=== PATIENT | male | born 1975 | race Caucasian/White ===

== ENCOUNTER → 2020-09-13 10:45 | Outpatient (CLI) | payer OTHER, MEDICAID, SELFPAY ==
[2020-09-13 23:12] LABS: COVID19 - ORCAS (NP or Nasal) Negative (Negative)
== END ==
PROVIDERS: Family Medicine; PCP Physician Assistant; Visit Provider Physician Assistant
DX: R35.0 Frequency of micturition (principal); R50.9 Fever, unspecified
CPT/HCPCS: 87086; U0003

== ENCOUNTER → 2020-09-14 08:21 | Outpatient (CLI) | payer OTHER, SELFPAY ==
[2020-09-14 19:15] LABS: Alanine Aminotransferase 99 IU/L (<50); Albumin Globulin Ratio 1.5 (1.0-2.8); Alkaline Phosphatase 95 U/L (38-126); Aspartate Aminotransferase 88 IU/L (17-59); Bilirubin Total 1.1 mg/dL (0.2-1.3); Blood Urea Nitrogen 15 mg/dL (9-20); Calcium 9.4 mg/dL (8.4-10.2); Carbon Dioxide 27 mmol/L (22-32); Chloride 104 mmol/L (98-107); Estimated Glomerular Filt Rate > 60.0 mL/min (>60); Globulin 2.6 g/dL (1.7-4.1); Glucose 134 mg/dL (70-100); HEMOLYSIS 19 (0-50); Sodium 140 mmol/L (137-145); Total Protein 6.6 g/dL (6.3-8.2)
[2020-09-14 19:16] LABS: Add Manual Diff / Slide Review NO; Basophils Absolute Auto 0 /uL (0-100); Basophils Percent Auto 0.9 % (0-2); Eosinophils Absolute Auto 200 /uL (0-450); Eosinophils Percent Auto 4.1 % (2-4); Hematocrit 45.5 % (41-53); Hemoglobin 15.2 g/dL (13.5-17.5); Lymphocytes Absolute Auto 1000 /uL (1100-4500); Lymphocytes Percent Auto 25.4 % (25-40); Mean Corpuscular HGB Conc 33.3 % (30-36); Mean Corpuscular Hemoglobin 29.1 PG (26-34); Mean Corpuscular Volume 87.6 fL (80-100); Monocytes Absolute Auto 400 /uL (0-900); Monocytes Percent Auto 10.6 % (3-14); Neutrophils Absolute Auto 2200 /uL (1500-7000); Platelet Count 173 X10^3/uL (150-400); White Blood Cell Count 3.8 X10^3/uL (4.5-11.0)
== END ==
PROVIDERS: PCP Physician Assistant; Visit Provider Physician Assistant
DX: R35.0 Frequency of micturition (principal); R50.9 Fever, unspecified
CPT/HCPCS: 80053; 85025

== ENCOUNTER → 2020-10-01 15:27 | Outpatient (CLI) | payer OTHER, MEDICAID, SELFPAY ==
--- NOTE | 2020-10-01 15:28 | DI.CT.S_ITS ---
PROCEDURE: CT ABDOMEN PELVIS W CON INDICATIONS: abdominal pain TECHNIQUE: After the administration of intravenous contrast, 5 mm thick sections acquired from the diaphragm to the symphysis. 5 mm coronal and sagittal reformats were acquired. For radiation dose reduction, the following was used: automated exposure control, adjustment of mA and/or kV according to patient size. COMPARISON: None. FINDINGS: Image quality: Excellent. ABDOMEN: Lung bases: Lung bases are clear. Heart size is normal. Solid organs: Liver is normal in size and enhancement. Gallbladder appears normal, partially contracted. Biliary system is non dilated. Pancreas enhances normally. Spleen is normal in size but abnormal in enhancement, with internal rounded and ovoid masses, the largest of which measures up to 3.5 cm at the superior splenic hilum.. No adrenal nodules. Kidneys demonstrate normal size and enhancement, without hydronephrosis. Peritoneum and bowel: Bowel loops demonstrate normal wall thickness and caliber. No free fluid or air. Nodes and vessels: No retroperitoneal or mesenteric adenopathy by size criteria. Aorta and inferior vena cava are normal in size. Miscellaneous: No ventral hernias. PELVIS: Genitourinary: Bladder wall thickness is normal. Miscellaneous: No inguinal hernias or adenopathy. Bones: No suspicious bony lesions. No vertebral body compression fractures. IMPRESSION: Splenic lesions are present, rounded and ovoid, measuring up to 3.5 cm in diameter. Etiology is uncertain, and this is not associated with hepatic abnormalities or adenopathy. Multifocal lymphoma can produce such an appearance, unusual manifestation of splenic metastatic disease also should be considered. Nuclear medicine PET-CT scanning may be warranted. Also, oncologic consultation. Dictated by: Ham Miller M.D. on 10/01/2020 at 16:44 Approved by: Ham Miller M.D. on 10/01/2020 at 16:48
== END ==
PROVIDERS: PCP Physician Assistant; Referring Provider Physician Assistant; Visit Provider Physician Assistant
DX: R10.9 Unspecified abdominal pain (principal); D73.89 Other diseases of spleen; R74.8 Abnormal levels of other serum enzymes
CPT/HCPCS: 74177

== ENCOUNTER → 2020-10-06 08:43 | Outpatient (CLI) | payer OTHER, MEDICAID, SELFPAY ==
[2020-10-06 19:34] LABS: Add Manual Diff / Slide Review NO; Basophils Absolute Auto 0 /uL (0-100); Basophils Percent Auto 0.7 % (0-2); Eosinophils Absolute Auto 200 /uL (0-450); Eosinophils Percent Auto 3.3 % (2-4); Hemoglobin 14.5 g/dL (13.5-17.5); Lymphocytes Absolute Auto 1600 /uL (1100-4500); Lymphocytes Percent Auto 26.4 % (25-40); Mean Corpuscular Hemoglobin 29.1 PG (26-34); Mean Corpuscular Volume 88.3 fL (80-100); Monocytes Absolute Auto 400 /uL (0-900); Monocytes Percent Auto 6.5 % (3-14); Neutrophils Absolute Auto 3800 /uL (1500-7000); Neutrophils Percent Auto 63.1 % (50-75); Platelet Count 251 X10^3/uL (150-400); Red Blood Cell Count 4.99 X10^6/uL (4.5-5.9); Red Cell Distribution Width 13.8 % (11.6-14.8)
[2020-10-06 19:49] LABS: Appearance Urine UA CLEAR; Bilirubin Urine UA NEGATIVE (NEGATIVE); Color Urine UA YELLOW; Glucose Urine UA NEGATIVE (Negative); Ketones Urine UA NEGATIVE (NEGATIVE); Leukocyte Esterase Urine UA NEGATIVE (NEGATIVE); Nitrite Urine UA NEGATIVE (Negative); Occult Blood Urine UA NEGATIVE (Negative); Protein Urine UA NEGATIVE (Negative); Specific Gravity Urine UA 1.025 (1.000-1.035); Urobilinogen Urine UA 0.2 E.U./dL (0.2); pH Urine UA 5.5 (4.5-8.0)
[2020-10-06 19:56] LABS: Alanine Aminotransferase 24 IU/L (<50); Albumin 4.1 g/dL (3.5-5.0); Albumin Globulin Ratio 1.6 (1.0-2.8); Alkaline Phosphatase 74 U/L (38-126); Amylase 40 U/L (30-110); Aspartate Aminotransferase 28 IU/L (17-59); BUN Creatinine Ratio 18.9 (6-22); Bilirubin Total 1.4 mg/dL (0.2-1.3); Blood Urea Nitrogen 18 mg/dL (9-20); Calcium 9.8 mg/dL (8.4-10.2); Carbon Dioxide 28 mmol/L (22-32); Chloride 104 mmol/L (98-107); Cholesterol 161 mg/dL (140-199); Estimated Glomerular Filt Rate > 60.0 mL/min (>60); Globulin 2.6 g/dL (1.7-4.1); Glucose 108 mg/dL (70-100); HDL Cholesterol 80 mg/dL (40-60); HEMOLYSIS < 15 (0-50); LDL Cholesterol Calculated 73 mg/dL (<100); Lipase 134 U/L (23-300); Potassium 4.7 mmol/L (3.4-5.1); Sodium 139 mmol/L (137-145); Total Protein 6.7 g/dL (6.3-8.2); Triglycerides 38 mg/dL (35-150)
--- NOTE | 2020-10-11 11:31 | ONC.MSW ---
Description: New Referral Navigation T/C Reason for Referral: New Splenic Masses Activity: Reviewed referral and EMR clinicals. Called pt's to discuss the referral, medical status, acuity, and immediate needs. Pt has been experiencing increasing fatigue, malaise, and right flank pain. CT imaging showed new splenic lesions, however no further work-up has been done at this time. Pt's shares that they have a small child and a baby (11-months old), they live on [place], both pt/ express feeling highly anxious. Discussed what to expect with the first Oncology consult, as well as the ongoing availability of assistance, support, and resource referrals as needed. Confirmed a first consult visit time for Sunday, 10/18, at 3:20pm, 3:00 check-in time. Also provided my direct contact info should pt/family have any further questions or need for assistance prior to their visit. No further needs indicated at this time.
== END ==
PROVIDERS: PCP Physician Assistant; Visit Provider Physician Assistant
DX: R10.9 Unspecified abdominal pain (principal); R53.81 Other malaise; R53.83 Other fatigue; R74.8 Abnormal levels of other serum enzymes
CPT/HCPCS: 80053; 80061; 81003; 82150; 83690; 85025

== ENCOUNTER → 2020-10-13 12:21 | Outpatient (CLI) | payer OTHER, MEDICAID, SELFPAY ==
--- NOTE | 2020-10-13 12:22 | DI.CT.S_ITS ---
PROCEDURE: CT CHEST ABDOMEN W CON INDICATIONS: Splenic lesions, left axillary lymphadenopathy on exam TECHNIQUE: After the administration of oral contrast and intravenous contrast, 5 mm thick sections acquired from the lung apices to the iliac crests. 5 mm coronal and sagittal reformats were performed, with additional 7 mm coronal MIP reformats through the lungs. For radiation dose reduction, the following was used: automated exposure control, adjustment of mA and/or kV according to patient size. COMPARISON: [facility], CT, CT ABDOMEN PELVIS W CON, 10/01/2020, 16:21. FINDINGS: Image quality: Excellent. CHEST: Lungs and pleura: No acute air space opacities. No pleural effusions or pneumothorax. Central and peripheral airways are patent and normal in caliber. Mediastinum: Heart size is normal. No pericardial effusion. No mediastinal or hilar adenopathy by size criteria. Thoracic aorta and central pulmonary arteries are normal in size. Esophagus is normal in caliber. No hiatal hernia. Chest wall: No axillary or supraclavicular adenopathy by size criteria. Thyroid gland appears normal where well seen . ABDOMEN: Solid organs: Liver is normal in size and enhancement. Gallbladder appears normal . Biliary system is non dilated. Pancreas enhances normally. Spleen is normal in size and unchanged in enhancement. As was previously the case 10/01/20 the spleen is again seen to contain hypo dense nodules which are solid in appearance, the largest of which measures 3.5 cm at the superior splenic hilum. No change in size or morphology of these lesions is seen. No adrenal nodules. Kidneys are normal in size and enhancement, without hydronephrosis. Peritoneum and bowel: Bowel loops demonstrate normal wall thickness and caliber. No free fluid or air. Nodes and vessels: No retroperitoneal or mesenteric adenopathy by size criteria. Aorta and inferior vena cava are normal in caliber. Bones: No suspicious bony lesions. No vertebral body compression fractures. Miscellaneous: No ventral hernias. IMPRESSION: The splenic abnormalities present are discrete solid masses, and could be further characterized to some degree with ultrasound imaging. The findings were discussed with the ordering healthcare provider, medical natural resources specialist. Discussed was the potential benefit of obtaining a nuclear medicine PET-CT scan for this patient on the assumption that the splenic lesions are malignant in origin and possibly metastatic. The performance of a splenic biopsy, which has significant risk of bleeding, may be deferred by identification of a site of potential biopsy elsewhere that is safer for access. No additional lesion elsewhere, however, is seen by this CT scanning. Dictated by: Ham Miller M.D. on 10/13/2020 at 15:58 Approved by: Ham Miller M.D. on 10/13/2020 at 16:03
[2020-10-13 12:45] LABS: Hematocrit 43.9 % (41-53); Mean Corpuscular HGB Conc 34.1 % (30-36); Mean Corpuscular Hemoglobin 29.5 PG (26-34); Mean Corpuscular Volume 86.4 fL (80-100); Platelet Count 239 X10^3/uL (150-400); Red Blood Cell Count 5.08 X10^6/uL (4.5-5.9); Red Cell Distribution Width 13.6 % (11.6-14.8); Reticulocyte Count, Percent 0.9 % (0.87-2.60); White Blood Cell Count 7.6 X10^3/uL (4.5-11.0)
[2020-10-13 13:11] LABS: Neutrophils Absolute Manual 5168 /uL (3000-5900); Total Cells Counted 100
[2020-10-13 13:12] LABS: RBC Morphology Normal Morphology
[2020-10-13 13:45] LABS: Bilirubin Direct 0.3 mg/dL (0.0-0.4); Bilirubin Total 1.4 mg/dL (0.2-1.3); Lactate Dehydrogenase 486 U/L (313-618)
== END ==
PROVIDERS: PCP Physician Assistant; Referring Provider Internal Medicine; Visit Provider Internal Medicine
DX: D73.89 Other diseases of spleen (principal); R74.8 Abnormal levels of other serum enzymes; R59.0 Localized enlarged lymph nodes
CPT/HCPCS: 36415; 71260; 74160; 82247; 82248; 83615; 85025; 85045; Q9967

== ENCOUNTER → 2021-04-05 10:05 | Outpatient (CLI) | payer OTHER, MEDICAID, SELFPAY ==
[2021-04-05 18:43] LABS: Add Manual Diff / Slide Review NO; Basophils Absolute Auto 0 /uL (0-100); Basophils Percent Auto 0.5 % (0-2); Eosinophils Absolute Auto 200 /uL (0-450); Eosinophils Percent Auto 4.3 % (2-4); Hematocrit 44.3 % (41-53); Hemoglobin 14.9 g/dL (13.5-17.5); Lymphocytes Absolute Auto 1300 /uL (1100-4500); Lymphocytes Percent Auto 21.8 % (25-40); Mean Corpuscular HGB Conc 33.7 % (30-36); Mean Corpuscular Hemoglobin 28.9 PG (26-34); Mean Corpuscular Volume 85.7 fL (80-100); Monocytes Absolute Auto 600 /uL (0-900); Monocytes Percent Auto 10.2 % (3-14); Neutrophils Absolute Auto 3700 /uL (1500-7000); Neutrophils Percent Auto 63.2 % (50-75); Platelet Count 213 X10^3/uL (150-400); Red Blood Cell Count 5.17 X10^6/uL (4.5-5.9); Red Cell Distribution Width 13.3 % (11.6-14.8); White Blood Cell Count 5.8 X10^3/uL (4.5-11.0)
[2021-04-05 18:52] LABS: Alanine Aminotransferase 57 IU/L (<50); Albumin 4.1 g/dL (3.5-5.0); Albumin Globulin Ratio 1.6 (1.0-2.8); Alkaline Phosphatase 71 U/L (38-126); Aspartate Aminotransferase 40 IU/L (17-59); BUN Creatinine Ratio 14.3 (6-22); Bilirubin Total 0.9 mg/dL (0.2-1.3); Blood Urea Nitrogen 14 mg/dL (9-20); Calcium 9.6 mg/dL (8.4-10.2); Carbon Dioxide 32 mmol/L (22-32); Chloride 101 mmol/L (98-107); Estimated Glomerular Filt Rate > 60.0 mL/min (>60); Globulin 2.5 g/dL (1.7-4.1); Glucose 105 mg/dL (70-100); HEMOLYSIS < 15 (0-50); Potassium 4.3 mmol/L (3.4-5.1); Sodium 141 mmol/L (137-145); Total Protein 6.6 g/dL (6.3-8.2)
== END ==
PROVIDERS: PCP Physician Assistant; Referring Provider Physician Assistant; Visit Provider Physician Assistant
DX: D73.89 Other diseases of spleen (principal)
CPT/HCPCS: 80053; 85025

== ENCOUNTER → 2021-09-12 08:16 | Outpatient (CLI) | payer OTHER, MEDICAID, SELFPAY ==
[2021-09-12 22:15] LABS: COVID19 - ORCAS (NP or Nasal) Negative (Negative)
== END ==
PROVIDERS: PCP Physician Assistant; Visit Provider Physician Assistant
DX: Z20.822 Contact with and (suspected) exposure to COVID-19 (principal)
CPT/HCPCS: U0003

== ENCOUNTER → 2023-02-17 11:15 | Outpatient (CLI) | payer OTHER, SELFPAY ==
--- NOTE | 2023-02-17 | DI.MRI.S_ITS ---
PROCEDURE: MR ANKLE LT WO CON INDICATIONS: Sprain of other ligament of left ankle, initial en TECHNIQUE: Noncontrast sagittal T1 spin echo and T2 fast spin echo with fat saturation, axial proton density fast spin echo and T2 fast spin echo with fat saturation, coronal T1 spin echo and T2 fast spin echo with fat saturation through the ankle/hindfoot. COMPARISON: None. FINDINGS: Image quality: Excellent. Bones and joints: There is well-defined plantar calcaneal enthesophyte with mild edema involving the enthesophyte and adjacent plantar aspect of calcaneus. No discrete fracture line. No other area of abnormal marrow signal. No hindfoot coalitions. No osteochondral injuries of the talar dome. Small amount of tibiotalar joint effusion is seen, no gross loose bodies. Medial structures: The posterior tibialis tendon is thickened with intrasubstance T2 hyperintense signal and small amount of fluid distending tendon sheath at the level of distal talus and talonavicular joint. The flexor digitorum longus, and flexor hallucis longus tendons are intact. The posterior tibial neurovascular bundle appears normal within the tarsal tunnel, without extrinsic mass effect. The deltoid ligament and spring ligament are grossly intact. Lateral structures: The anterior talofibular, calcaneofibular, and posterior talofibular ligaments appear mildly thickened with subtle intrasubstance T2 hyperintense signal particularly involving calcaneofibular ligament. More superiorly, the anterior and posterior tibiofibular ligaments appear intact, as is the intermalleolar ligament. The tibiofibular syndesmosis is normal in width at 2 mm or less. The peroneus longus and brevis tendons are mildly thickened with small amount of fluid distending tendon sheath at the level of lateral malleolus extending to the level of calcaneocuboid joint. Adjacent bony peroneal tubercle and retrotrochlear prominence are normal in size. The sinus tarsi demonstrates normal fatty signal, without edema, fibrosis, or cyst formation. Visualized sinus tarsi components (cervical ligament, interosseous talocalcaneal ligament, roots of the inferior extensor retinaculum) appear normal. The calcaneonavicular and calcaneocuboid components of the bifurcate ligament appear intact. The dorsal calcaneocuboid ligament appears intact. Anterior structures: The tibialis anterior, extensor hallucis longus, and extensor digitorum longus tendons appear intact. The dorsal talonavicular ligament appears intact. Posterior and plantar structures: Achilles tendon is intact. Medial and lateral bands of the plantar fascia are thickened at their calcaneal insertion with mild surrounding edema. No abductor digiti quinti muscle atrophy to suggest [place] neuropathy. IMPRESSION: 1. Low to moderate grade tenosynovitis involving posterior tibialis tendon at the level of distal talus and talonavicular joint. 2. Low-grade sprain/intrasubstance partial-thickness tear involving anterior and posterior talofibular ligament and calcaneofibular ligament as above. No full-thickness ligament rupture. 3. Low-grade tenosynovitis involving peroneus tendons at the level of lateral malleolus extending to the level of calcaneocuboid joint. 4. Well-defined plantar calcaneal enthesophyte with mild edema and thickened plantar fascia at its calcaneal insertion consistent with low to moderate grade plantar fasciitis. 5. No fracture or dislocation. No osteochondral injuries of talar dome. Small amount of tibiotalar joint effusion, no loose bodies. Dictated by: Narayan Edwards M.D. on 02/19/2023 at 10:53 Approved by: Narayan Edwards M.D. on 02/19/2023 at 11:07
== END ==
PROVIDERS: PCP Family Medicine; Referring Provider Orthopaedic Surgery Foot and Ankle Surgery; Visit Provider Orthopaedic Surgery Foot and Ankle Surgery
DX: S93.492A Sprain of other ligament of left ankle, initial encounter (principal); M65.872 Other synovitis and tenosynovitis, left ankle and foot; M77.32 Calcaneal spur, left foot; M25.472 Effusion, left ankle
CPT/HCPCS: 73721